=== PATIENT | female | born 1980 | race Two or more races ===

== ENCOUNTER 2020-08-22 10:22 | Outpatient (CLI) | payer OTHER | END 2020-08-22 10:24 | disposition home or self-care (01) | LOC: SONOGRAMA 10:22 | PROVIDERS: ATTEND Specialist | DX: D21.0 Benign neoplasm of connective and other soft tissue of head, face and neck (principal) ==

== ENCOUNTER 2020-09-25 05:58 | Day surgery (SDC) | payer OTHER | END 2020-09-25 12:13 | disposition home or self-care (01) | LOC: CIR.AMB 05:58 | PROVIDERS: ATTEND Specialist | DX: D17.0 Benign lipomatous neoplasm of skin and subcutaneous tissue of head, face and neck (principal); Z20.828 Contact with and (suspected) exposure to other viral communicable diseases ==

== ENCOUNTER 2021-11-12 16:01 | Emergency (ER) | payer OTHER ==
[~2021-11-12] VITALS: Ht 170.2 cm; Wt 71.7 kg
== END 2021-11-12 23:41 | disposition home or self-care (01) ==
LOC: ER 16:01
DX: N30.01 Acute cystitis with hematuria (principal); B96.89 Other specified bacterial agents as the cause of diseases classified elsewhere